=== PATIENT | male | born 1945 | race Caucasian/White ===

== ENCOUNTER 2019-11-20 08:22 | Inpatient (IN) | payer MEDICARE, MEDICAID ==
[~2019-11-20] VITALS: Ht 175.3 cm; Wt 97.5 kg
[~2019-11-20 08:22] MED LIST: PROPOFOL 200 MG/20 ML BOTTLE IV ONE
--- NOTE | 2019-11-20 14:15 | NUR ---
RECIVED PATIENT FROM [facility] [employer]. PATIENT AOX4, ABLE TO PROVIDE HISTORY. STABLE UPON ASSESSMENT. VS STABLE. DENIES PAIN OR SOB AT THIS TIME. DENIES ABDOMINAL PAIN. PLAN FOR SURGERY IN AM. NPO AFTER MN. PATIENT IS AWARE. CONSENT SIGNED. ORDERS TO FOLLOW ORDERED. RT. HAND IV IN PLACE WITH FLUIDS RUNNING. SAFETY AND FALL PREVENTION IN PLACE. CALL LIGHT IN REACH. BED IN LOW POSITION AND LOCKED.
[2019-11-20 14:37] LABS: BASOPHILS % (AUTO) 0.5 % (0.0-2.0); EOSINOPHILS # (AUTO) 0.3 K/uL (0.0-0.7); EOSINOPHILS % (AUTO) 3.3 % (0.0-7.0); HEMOGLOBIN 12.7 g/dL (12.5-16.3); MEAN CORPUSCULAR HEMOGLOBIN 30.1 uug (23.8-33.4); MEAN CORPUSCULAR HGB CONC 34 g/dL (32.5-36.3); MEAN CORPUSCULAR VOLUME 89.8 fL (73.0-96.2); MONOCYTES # (AUTO) 0.4 K/uL (2.0-10.0); MONOCYTES % (AUTO) 5.9 % (0.0-11.0); NEUTROPHILS # (AUTO) 3.8 K/uL (1.8-8.9); NEUTROPHILS % (AUTO) 50.3 % (38.5-71.5); PLATELET COUNT (AUTO) 202 K/uL (152-348); RED BLOOD CELL COUNT(AUTO) 4.23 MIL/uL (4.06-5.63); WHITE BLOOD COUNT (AUTO) 7.6 K/uL (3.6-10.2)
[2019-11-20 14:50] LABS: CREATININE 1.2 mg/dL (0.6-1.3); POTASSIUM 3.8 mmol/L (3.5-5.1)
[2019-11-20 15:43] VITALS: BP 143/63
[2019-11-20] MEDS ORDERED: METF-440 PO (15:55)
[2019-11-20] MEDS ORDERED: DICL1ADH11 TP (15:55)
[2019-11-20] MEDS ORDERED: TAMS-3 PO (15:55)
[2019-11-20] MEDS ORDERED: ENAL10TA PO (15:55)
[2019-11-20] MEDS ORDERED: ROSU20TA2 PO (15:55)
[2019-11-20] MEDS ORDERED: ASPI81TA31 PO (15:55)
[2019-11-20] MEDS ORDERED: METO-356 PO (15:55)
[2019-11-20] MEDS ORDERED: AMLO2.5T4 PO (15:55)
[2019-11-20] MEDS ORDERED: IV LACTATED RINGERS SOLUTION 1,000 ML IV PRN ×2 (16:00→17:00)
[2019-11-20] MEDS ORDERED: MORPHINE SULFATE 2 MG/1 ML DISP.SYRIN IV PRN (17:00)
[2019-11-20] MEDS ORDERED: HYDROCODONE/APAP 5-325MG TABLET PO PRN (17:00)
[2019-11-20] MEDS ORDERED: MAGNESIUM HYDROXIDE 30 ML LIQUID UDC PO PRN (17:00)
[2019-11-20] MEDS ORDERED: ONDANSETRON 4 MG/2 ML VIAL IV PRN (17:00)
[2019-11-20] MEDS ORDERED: hydrALAZINE HCL 20 MG/1 ML VIAL IV PRN (17:00)
[2019-11-20] MEDS ORDERED: ACETAMINOPHEN 325 MG TABLET PO PRN (17:00)
[2019-11-20] MEDS ORDERED: DEXTROSE 50% 50 ML DISP.SYRIN IV PRN (17:00)
--- NOTE | 2019-11-20 19:40 | NUR ---
PATIENT IN BED, AOX4. NO S/S OF DISTRESS OR PAIN SEEN AT THIS TIME. SAFETY AND FALL PREVENTION IN PLACE. CALL LIGHT IN REACH, BED IN LOW AND LOCKED POSITION, SIDE RAILS UP X2. REPORT GIVEN TO EXCELSIOR PICKER NURSE.
--- NOTE | 2019-11-20 20:00 | NUR ---
PATIENT RECEIVED INTO CARE, SITTING UP IN CHAIR, WITH AT SIDE. PATIENT HAS NO COMPLAINTS OF PAIN OR DISCOMFORT AT THIS TIME. ALL SAFETY AND FALL PRECAUTION MEASURES ARE IN PLACE. CALL LIGHT AND PERSONAL ITEMS ARE WITHIN REACH AT ALL TIMES. WILL CONTINUE TO MONITOR AND ASSESS.
[2019-11-20] MEDS: NEOMYCIN SULFATE 500 MG TABLET PO SCH ×2 (20:18→21:28)
[2019-11-20 20:47] VITALS: BP 148/78
--- NOTE | 2019-11-20 21:15 | NUR ---
Contact information for Davi bryan: [phone]
[2019-11-20] MEDS: ERYTHROMYCIN BASE 250 MG TABLET.DR PO SCH ×2 (21:28→22:53)
[2019-11-20] MEDS: TAMSULOSIN HCL 0.4 MG CAP.SR.24H PO SCH (21:30)
[2019-11-20] MEDS: BLOOD SUGAR DIAGNOSTIC 1 EACH STRIP VI SCH (21:36)
[2019-11-20] MEDS: ZOLPIDEM 5 MG TABLET PO PRN (21:59)
[2019-11-20] MEDS ORDERED: LORAZEPAM 1 MG TABLET PO ONE (22:00)
[2019-11-21] MEDS: NEOMYCIN SULFATE 500 MG TABLET PO SCH (05:20)
[2019-11-21] MEDS: ERYTHROMYCIN BASE 250 MG TABLET.DR PO SCH (05:21)
[2019-11-21 05:40] VITALS: BP 126/64
[2019-11-21] MEDS: BLOOD SUGAR DIAGNOSTIC 1 EACH STRIP VI SCH ×4 (06:15→21:58)
[2019-11-21 06:44] LABS: BASOPHILS % (AUTO) 0.7 % (0.0-2.0); EOSINOPHILS # (AUTO) 0.2 K/uL (0.0-0.7); EOSINOPHILS % (AUTO) 3.4 % (0.0-7.0); HEMATOCRIT 33.7 % (36.7-47.1); HEMOGLOBIN 11.6 g/dL (12.5-16.3); LYMPHOCYTES # (AUTO) 1.9 K/uL (20.0-40.0); LYMPHOCYTES % (AUTO) 27.6 % (20.5-51.5); MEAN CORPUSCULAR HEMOGLOBIN 30.6 uug (23.8-33.4); MEAN CORPUSCULAR HGB CONC 35 g/dL (32.5-36.3); MEAN CORPUSCULAR VOLUME 88.5 fL (73.0-96.2); MONOCYTES # (AUTO) 0.4 K/uL (2.0-10.0); NEUTROPHILS # (AUTO) 4.3 K/uL (1.8-8.9); NEUTROPHILS % (AUTO) 62.3 % (38.5-71.5); PLATELET COUNT (AUTO) 163 K/uL (152-348)
[2019-11-21] MEDS ORDERED: METRONIDAZOLE 500 MG/NS 100ML 500 MG in PREMIXED 1 EACH IV ONE (07:00)
[2019-11-21] MEDS ORDERED: LEVOFLOXACIN 750MG/D5W 750 MG in PREMIXED 1 EACH IV ONE (07:00)
[2019-11-21] MEDS ORDERED: PANTOPRAZOLE SODIUM 40 MG TABLET.DR PO SCH (07:00)
[2019-11-21 07:10] LABS: BILIRUBIN,TOTAL 0.9 mg/dL (0.2-1.0); CREATININE 1.3 mg/dL (0.6-1.3); MAGNESIUM 2.1 mg/dL (1.8-2.4); PHOSPHOROUS 2.9 mg/dL (2.5-4.9); POTASSIUM 3.4 mmol/L (3.5-5.1); TOTAL PROTEIN, SERUM 6.9 g/dL (6.4-8.2)
[2019-11-21] MEDS ORDERED: ONDANSETRON 4 MG/2 ML VIAL IV ONE (07:23)
[2019-11-21] MEDS ORDERED: VECURONIUM BROMIDE 10 MG VIAL IV ONE (07:23)
[2019-11-21] MEDS ORDERED: NEOSTIGMINE METHYLSULFATE 10 MG/10 ML VIAL IV ONE (07:23)
[2019-11-21] MEDS ORDERED: SEVOFLURANE 250 ML BOTTLE IH ONE (07:23)
[2019-11-21] MEDS ORDERED: DEXAMETHASONE SOD PHOSPHATE 4 MG INJ IV ONE (07:23)
[2019-11-21] MEDS ORDERED: GLYCOPYRROLATE 0.2 MG/ML VIAL MC ONE (07:23)
--- NOTE | 2019-11-21 07:50 | NUR ---
RECEIVED PATIENT IN BED RESTING, PATIENT NPO AND GOING FOR SURGERY AT 1300 AND BRIM POUNCING MACHINE OPERATOR TIME AT 1230, NO SB NOTED NOTED. IV INTACT AND PATENT WITH IV FLUID LACTATED RINGER RUNNING AT 75 ML/HR. SAFETY AND COMFORT PROVIDED AT ALL TIMES. CALL LIGHT WITHIN REACHED . WILL CONTINUE TO MONITOR.
[2019-11-21] MEDS: METOPROLOL SUCCINATE XL 25 MG TAB.SR.24H PO SCH (08:59)
[2019-11-21] MEDS: ENALAPRIL 10 MG TABLET PO SCH ×2 (08:59→21:50)
[2019-11-21] MEDS: AMLODIPINE 2.5 MG TABLET PO SCH (08:59)
[2019-11-21] MEDS ORDERED: Medication Not On Formulary EA (Rosuvastatin Calcium (Crestor) 20 MG) PO SCH (09:00)
[2019-11-21] MEDS ORDERED: POTASSIUM CHLORIDE 20 MEQ TAB.PRT.SR PO ONE (09:30)
[2019-11-21] MEDS ORDERED: ENOXAPARIN SODIUM 40 MG/0.4 ML DISP.SYRIN SQ ONE (11:00)
[2019-11-21 11:18] VITALS: BP 133/67
[2019-11-21 11:47] LABS: *BILIRUBIN,URIN NEGATIVE (NEGATIVE); *BLOOD, URINE 1+ (NEGATIVE); *CLARITY,URINE SLIGHTLY CLOUDY (CLEAR); *COLOR,URINE YELLOW (YELLOW); *KETONES,URINE NEGATIVE (NEGATIVE); *UROBILINOGEN,URINE 0.2 E.U./dl (NORMAL); LEUKOCYTE ESTERASE ,URINE NEGATIVE (NEGATIVE); NITRITE, URINE NEGATIVE (NEGATIVE); UGLUCOSE NEGATIVE (NEGATIVE)
--- NOTE | 2019-11-21 12:30 | NUR ---
patient went down for surgery with Yesenia ARREOLA,
[2019-11-21 12:40] LABS: BACTERIA,URINE FEW /HPF (NONE SEEN); RBC,URINE 0-3 /HPF (0-3); SQUAMOUS EPITHELIAL CELL,UR FEW /HPF (NONE SEEN); WBC,URINE 0-3 /HPF (0-3)
[2019-11-21] MEDS ORDERED: MIDAZOLAM HCL 10 MG/2 ML VIAL ONE (12:49)
[2019-11-21] MEDS ORDERED: LIDOCAINE HCL 1% 20 ML VIAL ONE (13:02)
[2019-11-21] MEDS ORDERED: BUPIVACAINE 0.25% 30 ML VIAL ONE (13:02)
[2019-11-21] MEDS ORDERED: BACITRACIN ZINC OINT 15 GM TUBE ONE (13:02)
[2019-11-21] MEDS ORDERED: HYDROMORPHONE 2 MG/1 ML DISP.SYRIN ONE (16:24)
[2019-11-21] MEDS ORDERED: FENTANYL CITRATE 100 MCG/2 ML AMPUL ONE (18:04)
[2019-11-21 18:45] VITALS: BP 144/66
--- NOTE | 2019-11-21 18:45 | NUR ---
RECEIVED PATIENT FROM PACU AND DELIVERED BY ELBA LIANG IN BED, VITALS TAKEN WITH ORDERS FOR CLEAR LIQUID DIET AND CBC , BNP AND MAG, AND PHOSPHORUS IN 11/22/19 AM
[2019-11-21] MEDS: HYDROMORPHONE 1 MG/1 ML DISP.SYRIN IV PRN (19:05)
[2019-11-21 19:38] VITALS: BP 144/66
--- NOTE | 2019-11-21 20:22 | NUR ---
Patient received into care with family members at bedside. Patient is sleeping after receiving prescribed dilauded 1mg via IV at 1905h due to post surgical pain. All safety and fall precaution measures are in place. Call light and personal items are within reach at all times. Will continue to monitor and assess.
[2019-11-21] MEDS: IV LACTATED RINGERS SOLUTION 1,000 ML IV PRN (21:49)
[2019-11-21] MEDS: ATORVASTATIN 40 MG TABLET PO SCH (21:50)
[2019-11-21] MEDS: LORAZEPAM 1 MG TABLET PO SCH (21:50)
[2019-11-21] MEDS: TAMSULOSIN HCL 0.4 MG CAP.SR.24H PO SCH (21:50)
[2019-11-21] MEDS: INSULIN REGULAR, HUMAN 300 UNIT/3 ML VIAL SQ PRN (21:59)
[2019-11-21] MEDS: METRONIDAZOLE 500 MG/NS 100ML 100 ML IV SCH (22:08)
[2019-11-21] MEDS: IBUPROFEN 800 MG TABLET PO SCH (22:29)
[2019-11-21] MEDS: GABAPENTIN 300 MG CAPSULE PO SCH (22:30)
[2019-11-21] MEDS: ACETAMINOPHEN 325 MG TABLET PO SCH (22:30)
--- NOTE | 2019-11-21 22:55 | NUR ---
Spoke with MD Cassidy regarding patient status. MD gave new order for 1mg Lorazepam (Ativan) PO once daily at 0900h and to continue current order of 2mg Lorazepm (Ativan) PO at 2100h. Order read back and confirmed with . advised to monitor florentino output and notify if there is less than 30cc/hr output or more than 100cc/hr output.
[2019-11-21] MEDS: LEVOFLOXACIN 500 MG/D5W 100 ML IV SCH (23:08)
[2019-11-22] MEDS: HYDROMORPHONE 1 MG/1 ML DISP.SYRIN IV PRN (01:42)
[2019-11-22 04:20] VITALS: BP 138/63
[2019-11-22] MEDS: METRONIDAZOLE 500 MG/NS 100ML 100 ML IV SCH ×3 (05:06→21:54)
[2019-11-22] MEDS: ACETAMINOPHEN 325 MG TABLET PO SCH ×3 (06:19→22:53)
[2019-11-22] MEDS: IBUPROFEN 800 MG TABLET PO SCH ×3 (06:19→22:53)
[2019-11-22] MEDS: GABAPENTIN 300 MG CAPSULE PO SCH ×3 (06:19→22:53)
[2019-11-22 06:36] LABS: CREATININE 1.2 mg/dL (0.6-1.3); MAGNESIUM 1.9 mg/dL (1.8-2.4); PHOSPHOROUS 2.7 mg/dL (2.5-4.9); POTASSIUM 4.2 mmol/L (3.5-5.1)
[2019-11-22] MEDS: BLOOD SUGAR DIAGNOSTIC 1 EACH STRIP VI SCH ×4 (06:41→21:53)
[2019-11-22] MEDS: IV LACTATED RINGERS SOLUTION 1,000 ML IV PRN ×2 (06:54→13:41)
[2019-11-22] MEDS ORDERED: BUPIVACAINE/EPI PF 0.5% 10 ML VIAL ONE (07:07)
[2019-11-22 07:33] LABS: BASOPHILS % (AUTO) 0.1 % (0.0-2.0); HEMATOCRIT 31.8 % (36.7-47.1); HEMOGLOBIN 10.9 g/dL (12.5-16.3); LYMPHOCYTES # (AUTO) 0.8 K/uL (20.0-40.0); LYMPHOCYTES % (AUTO) 8.9 % (20.5-51.5); MEAN CORPUSCULAR HEMOGLOBIN 31.2 uug (23.8-33.4); MEAN CORPUSCULAR HGB CONC 34 g/dL (32.5-36.3); MEAN CORPUSCULAR VOLUME 90.9 fL (73.0-96.2); MONOCYTES # (AUTO) 0.4 K/uL (2.0-10.0); MONOCYTES % (AUTO) 4.2 % (0.0-11.0); NEUTROPHILS # (AUTO) 8.2 K/uL (1.8-8.9); NEUTROPHILS % (AUTO) 86.8 % (38.5-71.5); PLATELET COUNT (AUTO) 150 K/uL (152-348)
[2019-11-22 07:46] LABS: WHITE BLOOD COUNT (AUTO) 9.4 K/uL (3.6-10.2)
[2019-11-22] MEDS: PANTOPRAZOLE SODIUM 40 MG VIAL IV SCH (08:35)
[2019-11-22] MEDS: INSULIN REGULAR, HUMAN 300 UNIT/3 ML VIAL SQ PRN ×3 (08:36→21:58)
[2019-11-22] MEDS: ENOXAPARIN SODIUM 40 MG/0.4 ML DISP.SYRIN SQ SCH (08:36)
[2019-11-22] MEDS: LORAZEPAM 1 MG TABLET PO SCH ×2 (08:37→21:39)
[2019-11-22] MEDS: AMLODIPINE 2.5 MG TABLET PO SCH (08:37)
[2019-11-22] MEDS: METOPROLOL SUCCINATE XL 25 MG TAB.SR.24H PO SCH (08:37)
[2019-11-22] MEDS: ENALAPRIL 10 MG TABLET PO SCH ×2 (08:38→21:43)
[2019-11-22 11:05] VITALS: BP 121/45
[2019-11-22 15:22] VITALS: BP 128/61
--- NOTE | 2019-11-22 17:31 | NUR ---
Patient 1 day post surgery. Midline incision with dressing clean dry and intact. Pain managed with scheduled medication. Patient followed by PT, walked about 50 feet. Ok to walk with nursing, ambulation and incentive spirometer encouraged. Sal catheter in place for accurate measurements of I&O. Continues on IV fluids, LR @150 urine output reported to . PRN Zofran given for one episode of nausea, resolved. Tolerating clear liquid diet. Passed gas, no BM. Accuchecks in place. Continues on flagyl antibiotic. Alert and oriented, no distress noted. End of shift chart check done, will endorse care to oncoming shift. Addendum: 11/22/19 at 1751 by LARRY ENGLISH RN [id number] one time PO lasix ordered, and fluid rate decrease to 100mls/hr
[2019-11-22] MEDS ORDERED: FUROSEMIDE 40 MG TABLET PO ONE (17:45)
--- NOTE | 2019-11-22 20:00 | NUR ---
PATIENT RECEIVED INTO CARE LAYING IN BED ON SIDE, SLEEPING COMFORTABLY, WITH FAMILY AT BEDSIDE. PATIENT HAS NO COMPLAINTS OF PAIN OR DISCOMFORT AT THIS TIME AND THERE ARE NO SIGNS/SYMPTOMS OF ACUTE DISTRESS OR DISCOMFORT NOTED OR OBSERVED BY NURSE. ALL SAFETY AND FALL PRECAUTION MEASURES ARE IN PLACE. CALL LIGHT AND PERSONAL ITEMS ARE WITHIN REACH AT ALL TIMES. WILL CONTINUE TO MONITOR AND ASSES.
[2019-11-22 21:10] VITALS: BP 140/59
[2019-11-22] MEDS: ATORVASTATIN 40 MG TABLET PO SCH (21:39)
[2019-11-22] MEDS: TAMSULOSIN HCL 0.4 MG CAP.SR.24H PO SCH (21:39)
[2019-11-22] MEDS: LEVOFLOXACIN 500 MG/D5W 100 ML IV SCH (22:53)
[2019-11-23] MEDS: IV LACTATED RINGERS SOLUTION 1,000 ML IV PRN ×3 (02:37→12:15)
[2019-11-23] MEDS: GABAPENTIN 300 MG CAPSULE PO SCH ×3 (05:01→21:24)
[2019-11-23] MEDS: IBUPROFEN 800 MG TABLET PO SCH ×3 (05:01→21:23)
[2019-11-23] MEDS: METRONIDAZOLE 500 MG/NS 100ML 100 ML IV SCH (05:01)
[2019-11-23] MEDS: ACETAMINOPHEN 325 MG TABLET PO SCH ×3 (05:01→21:23)
[2019-11-23 05:08] VITALS: BP 132/55
--- NOTE | 2019-11-23 06:00 | NUR ---
Patient slept intermittently throughout night with at side, with no complaints of pain or discomfort verbalized by patient or noted/observed by nurse. Patient attempted twice to evacuate his bowels on the toilet, but was unsuccessful. However, active bowel sounds can be auscultated throughout all quadrants. All due medications were given as ordered and tolerated well, with no adverse side effects verbalized by patient or noted/observed by nurse. All safety and fall precaution measures remain in place. Call light and personal items within reach at all times.
[2019-11-23] MEDS: BLOOD SUGAR DIAGNOSTIC 1 EACH STRIP VI SCH ×4 (06:20→20:28)
[2019-11-23 06:53] LABS: BASOPHILS % (AUTO) 0.2 % (0.0-2.0); EOSINOPHILS % (AUTO) 0.1 % (0.0-7.0); HEMOGLOBIN 10.7 g/dL (12.5-16.3); LYMPHOCYTES # (AUTO) 1.5 K/uL (20.0-40.0); LYMPHOCYTES % (AUTO) 16.8 % (20.5-51.5); MEAN CORPUSCULAR HEMOGLOBIN 30.7 uug (23.8-33.4); MEAN CORPUSCULAR HGB CONC 33 g/dL (32.5-36.3); MEAN CORPUSCULAR VOLUME 91.7 fL (73.0-96.2); MONOCYTES # (AUTO) 0.5 K/uL (2.0-10.0); MONOCYTES % (AUTO) 5.9 % (0.0-11.0); NEUTROPHILS # (AUTO) 6.9 K/uL (1.8-8.9); PLATELET COUNT (AUTO) 151 K/uL (152-348); RED BLOOD CELL COUNT(AUTO) 3.49 MIL/uL (4.06-5.63)
[2019-11-23 07:07] LABS: CREATININE 1.3 mg/dL (0.6-1.3); MAGNESIUM 1.8 mg/dL (1.8-2.4); PHOSPHOROUS 2.3 mg/dL (2.5-4.9); POTASSIUM 3.4 mmol/L (3.5-5.1)
--- NOTE | 2019-11-23 08:00 | NUR ---
Patient received into care with family members at bedside. No acute distress or sob noted at this time. pt on O@ via NC @ 3l/m. All safety and fall precaution measures are in place. Call light and personal items are within reach at all times. Will continue to monitor and assess.
[2019-11-23] MEDS: INSULIN REGULAR, HUMAN 300 UNIT/3 ML VIAL SQ PRN ×3 (08:21→20:38)
[2019-11-23] MEDS ORDERED: POTASSIUM CHLORIDE 20 MEQ TAB.PRT.SR PO ONE (09:00)
[2019-11-23] MEDS ORDERED: BISACODYL 5 MG TABLET.DR PO ONE (09:00)
[2019-11-23] MEDS ORDERED: DOCUSATE SODIUM 100 MG CAPSULE PO SCH (09:00)
[2019-11-23] MEDS ORDERED: NEUTRA PHOS PACKET PO ONE (09:00)
[2019-11-23] MEDS: AMLODIPINE 2.5 MG TABLET PO SCH (09:52)
[2019-11-23] MEDS: ENALAPRIL 10 MG TABLET PO SCH ×2 (09:52→20:21)
[2019-11-23] MEDS: METOPROLOL SUCCINATE XL 25 MG TAB.SR.24H PO SCH (09:53)
[2019-11-23] MEDS: PANTOPRAZOLE SODIUM 40 MG VIAL IV SCH (09:53)
[2019-11-23] MEDS: LORAZEPAM 1 MG TABLET PO SCH ×2 (09:53→20:21)
[2019-11-23] MEDS: ENOXAPARIN SODIUM 40 MG/0.4 ML DISP.SYRIN SQ SCH (09:54)
[2019-11-23 11:46] VITALS: BP 141/61
[2019-11-23] MEDS ORDERED: BISACODYL 5 MG TABLET.DR PO PRN (12:45)
[2019-11-23] MEDS: MAGNESIUM SULFATE/D5W 100 ML IV SCH ×2 (13:03→14:18)
[2019-11-23] MEDS: METRONIDAZOLE 500 MG TABLET PO SCH ×2 (13:29→21:23)
[2019-11-23 15:50] VITALS: BP 135/49
--- NOTE | 2019-11-23 18:00 | NUR ---
PATIENT SLEEPING COMFORTABLY, WITH FAMILY AT BEDSIDE. PATIENT HAS NO COMPLAINTS OF PAIN OR DISCOMFORT AT THIS TIME AND THERE ARE NO SIGNS/SYMPTOMS OF ACUTE DISTRESS OR DISCOMFORT NOTED OR OBSERVED BY NURSE. NEW ORDERS GIVEN AND CARRIED OUT. DR HAMEED AWARE OF PT'S PROGRESS. PT IS MEDICATION COMPLIANT. ALL SAFETY AND FALL PRECAUTION MEASURES ARE IN PLACE. CALL LIGHT AND PERSONAL ITEMS ARE WITHIN REACH AT ALL TIMES. WILL ENDORSE TO INCOMING SHIFT ACCORDINGLY.
[2019-11-23] MEDS: ATORVASTATIN 40 MG TABLET PO SCH (20:21)
[2019-11-23] MEDS: TAMSULOSIN HCL 0.4 MG CAP.SR.24H PO SCH (20:21)
[2019-11-23 20:34] VITALS: BP 178/86
[2019-11-23] MEDS: ZOLPIDEM 5 MG TABLET PO PRN (21:23)
[2019-11-23 22:00] VITALS: BP 154/65
[2019-11-23] MEDS: LEVOFLOXACIN 500 MG TABLET PO SCH (22:01)
[2019-11-24 04:53] VITALS: BP 172/81
[2019-11-24] MEDS: ACETAMINOPHEN 325 MG TABLET PO SCH ×3 (05:21→21:04)
[2019-11-24] MEDS: METRONIDAZOLE 500 MG TABLET PO SCH ×3 (05:22→21:04)
[2019-11-24] MEDS: GABAPENTIN 300 MG CAPSULE PO SCH ×3 (05:22→21:04)
[2019-11-24] MEDS: IBUPROFEN 800 MG TABLET PO SCH ×3 (05:22→21:04)
[2019-11-24] MEDS: PANTOPRAZOLE SODIUM 40 MG TABLET.DR PO SCH (05:22)
[2019-11-24] MEDS: BLOOD SUGAR DIAGNOSTIC 1 EACH STRIP VI SCH ×4 (06:31→21:09)
--- NOTE | 2019-11-24 06:49 | NUR ---
PATIENT SLEPT WELL LAST NIGHT. THIS MORNING HAD AN ELEVATED BLOOD PRESSURE , HYDRALAZINE GIVEN FOR HIGH BP. TOLERATED WELL. HAS GOOD URINE OUTPUT, PAIN IS BEING MANAGED, PATIENT DENIES ANY DISCOMFORT AND IS IN NO DISTRESS AT THIS TIME. IS AT BEDSIDE. CALL LIGHT WITHIN REACH.
[2019-11-24 07:09] LABS: BASOPHILS % (AUTO) 0.5 % (0.0-2.0); EOSINOPHILS % (AUTO) 0.4 % (0.0-7.0); HEMOGLOBIN 10.5 g/dL (12.5-16.3); LYMPHOCYTES # (AUTO) 1.3 K/uL (20.0-40.0); LYMPHOCYTES % (AUTO) 17.6 % (20.5-51.5); MEAN CORPUSCULAR HEMOGLOBIN 30.8 uug (23.8-33.4); MEAN CORPUSCULAR HGB CONC 34 g/dL (32.5-36.3); MEAN CORPUSCULAR VOLUME 90.5 fL (73.0-96.2); MONOCYTES # (AUTO) 0.4 K/uL (2.0-10.0); MONOCYTES % (AUTO) 5.4 % (0.0-11.0); NEUTROPHILS # (AUTO) 5.6 K/uL (1.8-8.9); NEUTROPHILS % (AUTO) 76.1 % (38.5-71.5); PLATELET COUNT (AUTO) 142 K/uL (152-348); RED BLOOD CELL COUNT(AUTO) 3.42 MIL/uL (4.06-5.63); WHITE BLOOD COUNT (AUTO) 7.3 K/uL (3.6-10.2)
[2019-11-24 07:41] LABS: CARBON DIOXIDE 29 mmol/L (21-32); CHLORIDE 104 mmol/L (98-107); CREATININE 1.1 mg/dL (0.6-1.3); GLUCOSE 139 mg/dL (74-106); MAGNESIUM 1.9 mg/dL (1.8-2.4); PHOSPHOROUS 2.9 mg/dL (2.5-4.9); POTASSIUM 3.3 mmol/L (3.5-5.1); UREA NITROGEN, BLOOD 13 mg/dL (7-18)
--- NOTE | 2019-11-24 08:14 | NUR ---
Pt resting comfortably in bed with family members at bedside. No acute distress or sob noted at this time. pt on O@ via NC @ 3l/m. All safety and fall precaution measures are in place. Call light and personal items are within reach at all times. Will continue to monitor and assess.
[2019-11-24] MEDS ORDERED: POTASSIUM CHLORIDE 20 MEQ TAB.PRT.SR PO ONE (08:45)
[2019-11-24] MEDS: AMLODIPINE 2.5 MG TABLET PO SCH (08:57)
[2019-11-24] MEDS: METOPROLOL SUCCINATE XL 25 MG TAB.SR.24H PO SCH (08:57)
[2019-11-24] MEDS: ENALAPRIL 10 MG TABLET PO SCH ×2 (08:57→21:04)
[2019-11-24] MEDS: LORAZEPAM 1 MG TABLET PO SCH ×2 (08:57→21:04)
[2019-11-24] MEDS: ENOXAPARIN SODIUM 40 MG/0.4 ML DISP.SYRIN SQ SCH (08:59)
[2019-11-24] MEDS: IV LACTATED RINGERS SOLUTION 1,000 ML IV PRN (10:53)
[2019-11-24] MEDS: INSULIN REGULAR, HUMAN 300 UNIT/3 ML VIAL SQ PRN ×2 (11:51→17:09)
[2019-11-24 12:00] VITALS: BP 150/61
[2019-11-24] MEDS ORDERED: NORMAL SALINE FLUSH 10 ML DISP.SYRIN IV PRN (12:45)
[2019-11-24] MEDS ORDERED: PHENAZOPYRIDINE HCL 100 MG TABLET PO ONE (13:00)
--- NOTE | 2019-11-24 13:00 | NUR ---
CT DR HAMEED; PT ADVANCED TO REGULAR DIET. DC VAZQUEZ CATHETER. PYRIDIUM TO BE GIVEN ONE HOUR PRIOR TO VAZQUEZ CATHETER REMOVAL. DC IV FLUIDS, CHANGE WOUND DRESSING PRN. NO ACUTE DISTRESS OR SOB NOTED.
[2019-11-24] MEDS: NORMAL SALINE FLUSH 10 ML DISP.SYRIN IV SCH ×2 (13:45→21:05)
--- NOTE | 2019-11-24 15:35 | NUR ---
VAZQUEZ CATHETER REMOVED INTACT.
[2019-11-24 16:00] VITALS: BP 155/68
--- NOTE | 2019-11-24 18:00 | NUR ---
PT RESTING IN BED COMFORTABLY, WITH FAMILY AT BEDSIDE. PATIENT HAS NO COMPLAINTS OF PAIN OR DISCOMFORT AT THIS TIME AND THERE ARE NO SIGNS/SYMPTOMS OF ACUTE DISTRESS OR DISCOMFORT NOTED OR OBSERVED BY NURSE. NEW ORDERS GIVEN AND CARRIED OUT. DR HAMEED AWARE OF PT'S PROGRESS. PT IS MEDICATION COMPLIANT. BLADDER SCAN DONE VAZQUEZ WAS REMOVED AT 1535. BLADDER SCAN SHOWED 136ML. OLIVE ELECTRIC SIGN ASSEMBLER AWARE NNO GIVEN. INCISION DRESSING CHANGED. ALL SAFETY AND FALL PRECAUTION MEASURES ARE IN PLACE. CALL LIGHT AND PERSONAL ITEMS ARE WITHIN REACH AT ALL TIMES. WILL ENDORSE TO INCOMING SHIFT ACCORDINGLY.
--- NOTE | 2019-11-24 19:20 | NUR ---
RECEIVED PATIENT RESTING. FAMILY IS AT THE BEDSIDE. IV ON LEFT WRIST FLUSHING, PATENT, AND INTACT. PATIENT DOES NOT COMPLAIN OF PAIN AT THE MOMENT. NO DISTRESS/ SHORTNESS OF BREATH NOTED. WILL ENFORCE INCENTIVE SPIROMETRY. DRESSING ON ABDOMEN CLEAN, DRY, AND INTACT. WILL CONTINUE TO MONITOR.
[2019-11-24 20:17] VITALS: BP 158/81
[2019-11-24] MEDS: TAMSULOSIN HCL 0.4 MG CAP.SR.24H PO SCH (21:04)
[2019-11-24] MEDS: ATORVASTATIN 40 MG TABLET PO SCH (21:05)
[2019-11-24] MEDS: LEVOFLOXACIN 500 MG TABLET PO SCH (22:45)
[2019-11-25] MEDS: ZOLPIDEM 5 MG TABLET PO PRN (01:10)
[2019-11-25 05:19] VITALS: BP_SYST 134; BP_SYST 139; BP_DIAS 51; BP_DIAS 58
[2019-11-25] MEDS: ACETAMINOPHEN 325 MG TABLET PO SCH ×2 (05:45→14:11)
[2019-11-25] MEDS: GABAPENTIN 300 MG CAPSULE PO SCH ×2 (05:45→14:11)
[2019-11-25] MEDS: NORMAL SALINE FLUSH 10 ML DISP.SYRIN IV SCH ×2 (05:46→14:00)
[2019-11-25] MEDS: PANTOPRAZOLE SODIUM 40 MG TABLET.DR PO SCH (05:46)
[2019-11-25] MEDS: IBUPROFEN 800 MG TABLET PO SCH ×2 (05:46→14:11)
[2019-11-25] MEDS: METRONIDAZOLE 500 MG TABLET PO SCH ×2 (05:46→14:11)
--- NOTE | 2019-11-25 06:31 | NUR ---
PATIENT SLEPT WELL THROUGHOUT THE NIGHT. ABLE TO VOID 3 TIMES. DRESSING IS CLEAN, DRY, AND INTACT. PATIENT TOLERATED MEDICATIONS. USE OF INCENTIVE SPIROMETER ENFORCED. DID NOT COMPLAIN OF PAIN THROUGHOUT THE SHIFT. NO ACUTE CHANGE IN PATIENT CONDITION. WILL ENDORSE TO DAY SHIFT NURSE.
[2019-11-25] MEDS: BLOOD SUGAR DIAGNOSTIC 1 EACH STRIP VI SCH ×2 (06:44→12:27)
[2019-11-25 07:30] LABS: BASOPHILS % (AUTO) 0.6 % (0.0-2.0); EOSINOPHILS # (AUTO) 0.1 K/uL (0.0-0.7); EOSINOPHILS % (AUTO) 1.4 % (0.0-7.0); HEMATOCRIT 33.6 % (36.7-47.1); HEMOGLOBIN 11.4 g/dL (12.5-16.3); LYMPHOCYTES # (AUTO) 1.6 K/uL (20.0-40.0); LYMPHOCYTES % (AUTO) 24.7 % (20.5-51.5); MEAN CORPUSCULAR HEMOGLOBIN 30.7 uug (23.8-33.4); MEAN CORPUSCULAR HGB CONC 34 g/dL (32.5-36.3); MEAN CORPUSCULAR VOLUME 90.7 fL (73.0-96.2); MONOCYTES # (AUTO) 0.4 K/uL (2.0-10.0); MONOCYTES % (AUTO) 5.9 % (0.0-11.0); NEUTROPHILS # (AUTO) 4.5 K/uL (1.8-8.9); NEUTROPHILS % (AUTO) 67.4 % (38.5-71.5); PLATELET COUNT (AUTO) 162 K/uL (152-348); WHITE BLOOD COUNT (AUTO) 6.6 K/uL (3.6-10.2)
[2019-11-25 07:35] LABS: CREATININE 1.1 mg/dL (0.6-1.3); MAGNESIUM 1.8 mg/dL (1.8-2.4); PHOSPHOROUS 2.9 mg/dL (2.5-4.9); POTASSIUM 3.4 mmol/L (3.5-5.1)
--- NOTE | 2019-11-25 07:53 | NUR ---
Awake, alert, oriented x 4, sitting on the chair, denies pain. Re instructed use of IS. Expressed desire to go home
[2019-11-25] MEDS ORDERED: POTASSIUM CHLORIDE 20 MEQ TAB.PRT.SR PO ONE (08:00)
[2019-11-25] MEDS: AMLODIPINE 2.5 MG TABLET PO SCH (08:56)
[2019-11-25] MEDS: METOPROLOL SUCCINATE XL 25 MG TAB.SR.24H PO SCH (08:57)
[2019-11-25] MEDS: ENALAPRIL 10 MG TABLET PO SCH (08:57)
[2019-11-25] MEDS: ENOXAPARIN SODIUM 40 MG/0.4 ML DISP.SYRIN SQ SCH (08:59)
[2019-11-25] MEDS: LORAZEPAM 1 MG TABLET PO SCH (09:00)
[2019-11-25 11:31] VITALS: BP 133/50
[2019-11-25] MEDS: INSULIN REGULAR, HUMAN 300 UNIT/3 ML VIAL SQ PRN (12:28)
[2019-11-25] MEDS ORDERED: PANT40TA4 PO (14:22)
[2019-11-25] MEDS ORDERED: ACET325C7 PO (14:22)
[2019-11-25] MEDS ORDERED: LEVO500T2 PO (14:22)
[2019-11-25] MEDS ORDERED: METR-147 PO (14:22)
[2019-11-25] MEDS ORDERED: IBUP-1957 PO (14:22)
--- NOTE | 2019-11-25 16:03 | NUR ---
With discharge order to home with home health arranged. Saline lock removed. Prescription and DC instruction given to patient and daughter, verbalized understanding. Went home per wheelchair in fair condition, not in distress, afebrile.
== END 2019-11-25 16:00 | disposition home health service (06) | DRG 330 ==
LOC: DS 08:22 → MEDSURG3 14:02
PROVIDERS: ADMIT Nurse Practitioner Acute Care; ATTEND Nurse Practitioner Acute Care
PROC: 0DBN8ZX Excision of Sigmoid Colon, Via Natural or Artificial Opening Endoscopic, Diagnostic (ICD-10-PCS; 2019-11-20)
PROC: 0DBP8ZX Excision of Rectum, Via Natural or Artificial Opening Endoscopic, Diagnostic (ICD-10-PCS; 2019-11-20)
PROC: 0DBL8ZX Excision of Transverse Colon, Via Natural or Artificial Opening Endoscopic, Diagnostic (ICD-10-PCS; 2019-11-20)
PROC: 0DTN0ZZ Resection of Sigmoid Colon, Open Approach (ICD-10-PCS; principal; 2019-11-21)
DX: C18.7 Malignant neoplasm of sigmoid colon (principal); E44.1 Mild protein-calorie malnutrition; K64.8 Other hemorrhoids; K64.4 Residual hemorrhoidal skin tags; E78.5 Hyperlipidemia, unspecified; E11.65 Type 2 diabetes mellitus with hyperglycemia; E87.6 Hypokalemia; N40.0 Benign prostatic hyperplasia without lower urinary tract symptoms; Z80.0 Family history of malignant neoplasm of digestive organs; D12.8 Benign neoplasm of rectum; D12.3 Benign neoplasm of transverse colon; Z82.49 Family history of ischemic heart disease and other diseases of the circulatory system; Z83.3 Family history of diabetes mellitus; I10 Essential (primary) hypertension
CPT/HCPCS: 36415; 71045; 82378; 83735; 84100; 85025; 85610; 86850; 86900; 86901; A4649; A4663; C9113; G0378; J0360; J1100; J1170; J1650; J1815; J1956; J2250; J2405; J2710; J3010; J3475; J3490; J7042; J7120; J8499

== ENCOUNTER 2020-10-19 07:22 | Outpatient (CLI) | payer MEDICARE, OTHER ==
[~2020-10-19 07:22] MED LIST changes: +ACET325C7 PO; +AMLO2.5T4 PO; +ASPI81TA31 PO; +DICL1PAT11 TP; +ENAL-80 PO; +IBUP-1957 PO; +LEVO500T2 PO; +METF-440 PO; +METO-356 PO; +METR-147 PO; +PANT40TA49 PO; -PROPOFOL 200 MG/20 ML BOTTLE IV ONE; +ROSU20TA2 PO; +TAMS-3 PO
== END 2020-10-19 23:59 | disposition home or self-care (01) ==
LOC: LAB 07:22
PROVIDERS: ATTEND Surgery
DX: Z01.812 Encounter for preprocedural laboratory examination (principal); Z20.828 Contact with and (suspected) exposure to other viral communicable diseases; Z85.038 Personal history of other malignant neoplasm of large intestine; K59.00 Constipation, unspecified

== ENCOUNTER 2020-10-21 09:06 | Day surgery (SDC) | payer MEDICARE, OTHER ==
[2020-10-21] MEDS ORDERED: PROPOFOL 200 MG/20 ML BOTTLE IV ONE (09:07)
[2020-10-21] MEDS ORDERED: IV NORMAL SALINE 1000 ML BAG IV ONE (09:07)
[2020-10-21 10:16] LABS: BASOPHILS % (AUTO) 0.4 % (0.0-2.0); EOSINOPHILS # (AUTO) 0.1 K/uL (0.0-0.7); EOSINOPHILS % (AUTO) 1.4 % (0.0-7.0); HEMATOCRIT 37.8 % (36.7-47.1); HEMOGLOBIN 12.9 g/dL (12.5-16.3); LYMPHOCYTES # (AUTO) 2.6 K/uL (20.0-40.0); LYMPHOCYTES % (AUTO) 41.9 % (20.5-51.5); MEAN CORPUSCULAR HEMOGLOBIN 32.2 uug (23.8-33.4); MEAN CORPUSCULAR HGB CONC 34 g/dL (32.5-36.3); MEAN CORPUSCULAR VOLUME 94.1 fL (73.0-96.2); MONOCYTES # (AUTO) 0.4 K/uL (2.0-10.0); MONOCYTES % (AUTO) 6.5 % (0.0-11.0); NEUTROPHILS # (AUTO) 3.1 K/uL (1.8-8.9); NEUTROPHILS % (AUTO) 49.8 % (38.5-71.5); PLATELET COUNT (AUTO) 153 K/uL (152-348); RED BLOOD CELL COUNT(AUTO) 4.02 MIL/uL (4.06-5.63); WHITE BLOOD COUNT (AUTO) 6.2 K/uL (3.6-10.2)
[2020-10-21 10:30] LABS: CARBON DIOXIDE 23 mmol/L (21-32); CHLORIDE 108 mmol/L (98-107); CREATININE 1.4 mg/dL (0.6-1.3); GLUCOSE 129 mg/dL (74-106); POTASSIUM 4.1 mmol/L (3.5-5.1); UREA NITROGEN, BLOOD 19 mg/dL (7-18)
[2020-10-21 10:36] LABS: ALANINE AMINOTRANSFERASE 26 U/L (16-63); ALKALINE PHOSPHATASE 75 U/L (50-136); ASPARTATE AMINOTRANSFERASE 18 U/L (15-37); BILIRUBIN,TOTAL 0.8 mg/dL (0.2-1.0); TOTAL PROTEIN, SERUM 7.6 g/dL (6.4-8.2)
== END 2020-10-21 13:30 | disposition home or self-care (01) ==
LOC: DS 09:06
PROVIDERS: ATTEND Surgery
DX: K59.00 Constipation, unspecified (principal); D12.3 Benign neoplasm of transverse colon; K63.89 Other specified diseases of intestine; I10 Essential (primary) hypertension; E11.9 Type 2 diabetes mellitus without complications; F32.9 Major depressive disorder, single episode, unspecified; N40.0 Benign prostatic hyperplasia without lower urinary tract symptoms; E78.5 Hyperlipidemia, unspecified; M19.90 Unspecified osteoarthritis, unspecified site; Z85.038 Personal history of other malignant neoplasm of large intestine; Z79.899 Other long term (current) drug therapy; Z98.890 Other specified postprocedural states; Z79.82 Long term (current) use of aspirin; Z79.84 Long term (current) use of oral hypoglycemic drugs; Z82.49 Family history of ischemic heart disease and other diseases of the circulatory system; Z87.891 Personal history of nicotine dependence
CPT/HCPCS: 36415; 71045; 85025; 85730; 93005; A4217; A4663; J3490; J7030; J7120